=== PATIENT | female | born 1930 ===

== ENCOUNTER 2017-08-30 14:07 | Outpatient (CLI) | payer MEDICARE, BC ==
[~2017-08-30] VITALS: Ht 165.1 cm; Wt 81.6 kg
[2017-08-30] MEDS ORDERED: DEXAMETHASONE 10 MG/ML (DECADRON) 1 ML VIAL ONE (14:11)
[2017-08-30 14:24] VITALS: BP 159/72
[2017-08-30 14:45] VITALS: BP 119/64
--- NOTE | 2017-09-03 01:21 | OPERATIVE REPORT ---
DATE OF SERVICE: 08/30/2017 DIAGNOSIS: Cervical radiculopathy. PROCEDURE: Fluoroscopic guided interlaminar epidural steroid injection. C7-T1 epidural steroid injection. PROCEDURE IN DETAIL: After obtaining informed consent from the patient, the patient's chart was reviewed. The patient was then brought to the procedure room and placed in the prone position. A timeout was performed. The back was prepped with antiseptic solution and under fluoro guidance, the patient's lumbar spine was identified at the level of C7-T1. The C7-T1 vertebra was identified with fluoro guidance and approximately 2 mL of 1.5% lidocaine solution was used to anesthetize the skin directly down to the pedicle of the C7-T1 and under fluoroscopic guidance, the tract was anesthetized up to the interlaminar space and the ligamentum flavum. This needle was withdrawn. Then, a 20-gauge 3.5 inch Tuohy needle was then directed following the same tract that was anesthetized with the spinal needle. Using loss of resistance, the epidural space was identified and then the syringe was switched for contrast solution which was injected, approximately 1 mL. After secondary confirmation of epidural access, another syringe was placed and 80 mg of Depo-Medrol was injected. The Tuohy needle was then flushed out with approximately 2 mL of the normal saline used from the loss of resistance syringe. Band-Aids were applied to all the procedure sites. The patient tolerated the procedure well and was taken to the recovery room in stable condition. COMPLICATIONS: None. Job ID: [id number] DocumentID: [id number] Dictated Date: 09/02/2017 20:36:28 Belt [employer]er Date: 09/03/2017 01:20:47 Dictated By: SHANE ALFARO DO
== END 2017-08-30 14:46 | disposition home or self-care (01) ==
LOC: CARD 14:07
PROVIDERS: ATTEND Pain Medicine Interventional Pain Medicine
DX: M54.12 Radiculopathy, cervical region (principal)
CPT/HCPCS: 62321